=== PATIENT | male | born 1970 | race Caucasian/White ===

== ENCOUNTER 2020-05-12 15:22 | Emergency (ER) | payer OTHER, SELFPAY ==
[2020-05-12 15:45] VITALS: BP 159/81; PULSE 92; RESP 18; TEMP 36.6; O2SAT 100
--- NOTE | 2020-05-12 15:55 | ED.LOWEXIN ---
HPI - Extremity Injury (Lower) General Chief Complaint: Extremity Injury, Lower Stated Complaint: left foot pain Source: patient Mode of arrival: ambulatory Limitations: no limitations History of Present Illness HPI Narrative: Patient is a 49-year-old male who presents complaining of left dorsal foot pain. He reports tenderness with palpation, reports he has had this happen multiple times in his head testing and evaluation for gout which has been negative. Patient reports he has been treated with steroids in the past and antibiotics. He denies taking [id number] medications for symptomatic treatment at this time. Related Data Allergies Allergy/AdvReac Type Severity Reaction Status Date / Time sulfamethoxazole Allergy Unconscious Verified 05/12/20 16:09 [From Bactrim] trimethoprim [From Bactrim] Allergy Unconscious Verified 05/12/20 16:09 Review of Systems Review of Systems: Narrative: CONSTITUTIONAL: Denies fever, chills, or sweats. EYES: Denies visual changes, redness, or discharge. ENT: Denies rhinorrhea, congestion, sore throat, or otalgia. CARDIOVASCULAR: Denies chest pain, palpitations, or edema. RESPIRATORY: Denies cough or dyspnea. GASTROINTESTINAL: Denies abdominal pain, nausea, vomiting, or diarrhea. GENITOURINARY: Denies dysuria or hematuria. SKIN: Denies rash or itching. MUSCULOSKELETAL: Reports left foot pain NEUROLOGIC: Denies headache, numbness, dizziness, or weakness. PSYCHIATRIC: Denies anxiety or depression. PMFSH Past Medical History Medical History (Updated 05/12/20 @ 16:06 by SANTIAGO Mtz) No significant past medical history Surgical History Surgical History (Updated 05/12/20 @ 16:01 by SANTIAGO Mtz) No significant past surgical history Family History Family History (Updated 05/12/20 @ 16:01 by SANTIAGO Mtz) Other Heart disease Hypertension Social History Social History (Updated 05/12/20 @ 16:02 by SANTIAGO Mtz) Smoking status: Current every day smoker Tobacco type: cigarettes Alcohol intake: current Alcohol use details: occasional Substance use: never Living arrangements: with family Exam Narrative: Exam Narrative: GENERAL: Well-appearing, well-nourished, and in no acute distress. HEAD: Normocephalic, atraumatic. EYES: No redness or drainage. ENT: Mucous membranes pink and moist. CHEST: No respiratory distress. MUSCULOSKELETAL: No bony tenderness. EXTREMITIES: Erythema and edema to left lateral dorsal foot. Tenderness with palpation SKIN: Warm, dry, no rash. NEURO: No focal deficits. Alert and oriented x3. Gait steady. PSYCH: Normal affect. No signs of depression or anxiety. MDM - Extremity Injury (Lower) MDM Narrative Medical decision making narrative: Patient appears to have mild cellulitis to left foot. Patient to be treated with antibiotics at this time. Patient also requesting steroids as he has been treated with same in the past. Discussed plan of care and follow-up with patient, who agrees. Patient is stable for discharge to home with outpatient follow-up as discussed. Differential Diagnosis Differential diagnosis: Likely fracture of toe and other (Gout, cellulitis, plantar fasciitis) Critical Care Time Critical Care Time Critical Care Time: No Discharge Plan Discharge Clinical Impression: Cellulitis Patient Disposition: Home, Self-Care Condition: Stable Instructions: Antibiotic Form, Cellulitis (DC) Additional Instructions: Take antibiotics as directed. You may also take steroids as directed. Follow-up with PCP provided. If you develop increased swelling, inability to ambulate or increased pain, please go to the emergency department immediately for further evaluation. Prescriptions: New clindamycin HCl 300 mg capsule 300 mg PO Q6H 7 Days Qty: 28 RF: 0 prednisone 20 mg tablet 40 mg PO DAILY 5 Days Qty: 10 RF: 0 Follow-up/Referrals: PHYSICIAN,DESIGN EDITOR [Barbara
== END 2020-05-12 16:20 | disposition home or self-care (01) ==
PROVIDERS: Emergency Provider Nurse Practitioner
DX: L03.116 Cellulitis of left lower limb (principal); F17.210 Nicotine dependence, cigarettes, uncomplicated
CPT/HCPCS: 99213; G0463

== ENCOUNTER 2020-08-23 11:11 | Emergency (ER) | payer OTHER, SELFPAY ==
[2020-08-23 11:20] VITALS: BP 132/85; PULSE 85; RESP 20; TEMP 36.9; O2SAT 99
--- NOTE | 2020-08-23 11:52 | ED.SKABFB ---
HPI - Skin/Abscess/Foreign Bdy General Chief complaint: Skin/Abscess/Foreign Body Stated complaint: rash on arms Time Seen by Provider: 08/23/20 11:42 Source: patient and RN notes reviewed Mode of arrival: ambulatory Limitations: no limitations History of Present Illness HPI narrative: Patient presents today with a 10-day history of severely pruritic rash to chest, bilateral arms, groin, and right lower leg. Patient states he has been out pulling weeds in his yard and this is what the likely culprit of his rash. He has been using leather gloves, but has not changed out the gloves and has been continuing to pull weeds in his yard since the rash began. He has been using some Ivarest and calamine lotion as well as taking Benadryl without much relief. MD complaint: rash Related Data Allergies Allergy/AdvReac Type Severity Reaction Status Date / Time sulfamethoxazole Allergy Unconscious Verified 08/23/20 11:15 [From Bactrim] trimethoprim [From Bactrim] Allergy Unconscious Verified 08/23/20 11:15 Review of Systems Review of Systems: Narrative: CONSTITUTIONAL: Denies body aches, fever, chills, or sweats. EYES: Denies visual changes, redness, or discharge. ENT: Denies rhinorrhea, congestion, sore throat, or otalgia. CARDIOVASCULAR: Denies chest pain, palpitations, or edema. RESPIRATORY: Denies cough or dyspnea. GASTROINTESTINAL: Denies abdominal pain, nausea, vomiting, or diarrhea. GENITOURINARY: Denies dysuria or hematuria. SKIN: Denies wounds.+ Pruritic rash MUSCULOSKELETAL: Denies back pain, joint pain, or myalgia. NEUROLOGIC: Denies headache, numbness, tingling, or weakness. PSYCH: Denies depression or anxiety. [facility] Past Medical History Medical History No significant past medical history Surgical History Surgical History No significant past surgical history Family History Family History Other Heart disease Hypertension Social History Social History Smoking status: Current every day smoker Tobacco type: cigarettes Alcohol intake: current Substance use: never Comments At time of signature, I have reviewed and agree with nursing past medical, surgical, social and family history unless otherwise noted. Please see nursing chart for further information. There is no relevant family history pertinent to the presenting complaint Exam Narrative: Exam Narrative: GENERAL: Well-appearing, well-nourished, and in no acute distress. HEAD: Normocephalic, atraumatic. EYES: EOMI. No redness or drainage. Conjunctivae normal. ENT: Mucous membranes pink and moist. NECK: Normal AROM. CHEST: No respiratory distress. EXTREMITIES: Normal range of motion. No edema. SKIN: Warm, dry. Capillary refill normal. Normal skin turgor. Erythematous papular and tiny vesicular rash clusters to the left chest, bilateral upper and lower arms, groin, and right lower leg. No induration or fluctuance noted. No active drainage. No crusting. NEURO: No focal deficits. Alert and oriented x3. Gait steady. PSYCH: Normal affect. No signs of depression or anxiety. Course Vital Signs Vital signs: Vital Signs Temperature 98.4 F 08/23/20 11:20 Pulse Rate 85 08/23/20 11:20 Respiratory Rate 08/23/20 11:20 Blood Pressure 132/85 08/23/20 11:20 Pulse Oximetry 99 08/23/20 11:20 Temperature 98.4 F 08/23/20 11:20 Pulse Rate 85 08/23/20 11:20 Respiratory Rate 20 08/23/20 11:20 Blood Pressure 132/85 08/23/20 11:20 Pulse Oximetry 99 08/23/20 11:20 Reviewed. Pt has been instructed to follow up with his PCP regarding his elevated blood pressure today. MDM - Skin/Abscess/Foreign Bdy Differential Diagnosis Differential diagnosis: Likely abscess of skin or sub
== END 2020-08-23 12:00 | disposition home or self-care (01) ==
PROVIDERS: Emergency Provider Nurse Practitioner
DX: L25.9 Unspecified contact dermatitis, unspecified cause (principal); F17.210 Nicotine dependence, cigarettes, uncomplicated
CPT/HCPCS: 99213; G0463

== ENCOUNTER 2022-08-28 12:22 | Emergency (ER) | payer OTHER, SELFPAY ==
--- NOTE | 2022-08-28 12:27 | ED.LOWEXIN ---
HPI - Extremity Injury (Lower) General Chief Complaint: Extremity Injury, Lower Stated Complaint: Right foot issues Time Seen by Provider: 08/28/22 12:27 Source: patient Mode of arrival: ambulatory Limitations: no limitations History of Present Illness HPI Narrative: Patient is a 51-year-old male who presents with right base of big toe pain and redness starting yesterday. Patient states it feels the same as the last time he had cellulitis. Patient states he has been tested for gout multiple times and has come back negative each time. Patient reports pain to bend big toe but is still able to ambulate. Denies any redness streaking up the foot, fever, chills. Related Data Allergies Allergy/AdvReac Type Severity Reaction Status Date / Time sulfamethoxazole Allergy Unconscious Verified 08/23/20 11:15 [From Bactrim] trimethoprim [From Bactrim] Allergy Unconscious Verified 08/23/20 11:15 Review of Systems Review of Systems: All systems reviewed & are unremarkable except as noted in HPI and below Constitutional: Constitutional: Denies body ache(s), Denies chills, Denies fatigue, Denies fever(s), Denies headache(s), Denies malaise and Denies weakness Eyes: Eyes: Denies blurry vision, Denies irritation and Denies loss of vision ENT: Denies otalgia, Denies headache(s), Denies nasal discharge, Denies sinus pain and Denies sore throat Cardiovascular: Cardiovascular: Denies chest pain, Denies irregular heart rhythm and Denies dyspnea Respiratory: Respiratory: Denies dyspnea Gastrointestinal: Gastrointestinal: Denies abdominal pain, Denies melena, Denies hematochezia, Denies diarrhea, Denies nausea and Denies vomiting Musculoskeletal: Musculoskeletal: Denies back pain, Denies myalgias and Reports arthralgias (Right big toe) Integumentary/Breasts: Skin/Breast: Denies pruritus and Denies rash Neurologic: Denies headache(s), Denies loss of vision and Denies weakness Psychiatric: Psychiatric: Reports no additional psychiatric complaints Endocrine: Endocrine: Denies fatigue PMFSH Past Medical History Medical History No significant past medical history Surgical History Surgical History No significant past surgical history Family History Family History Other Heart disease Hypertension Social History Social History Smoking status: Current every day smoker Tobacco type: cigarettes Alcohol intake: current Alcohol use details: occasional Substance use: never Living arrangements: with family Comments At time of signature, agree with nursing past medical, surgical, social and family history. There is no relevant family history pertinent to the presenting complaint. Exam Const: General: cooperative, healthy appearing, comfortable, no acute distress and well nourished Nutritional Appearance: well nourished Orientation/consciousness: patient oriented x3 Limitations: no limitations HENMT: Head: normal to inspection, normocephalic and atraumatic Ears: hearing grossly normal bilaterally and external ears normal Face/Nose/Sinus: Normal external nose present, normal facial exam and face symmetric Face and sinus: normal facial exam and face symmetric Mouth: Yes lip normal Eyes: General: appearance normal, both eyes and all related structures Alignment and Position: alignment normal and position normal Periorbital: periorbital findings normal Eyelids: eyelids normal Pupils: Equal, round and reactive pupils present EOM: EOMs intact bilaterally Neck: Neck: normal visual inspection, full ROM and supple Chest: Chest palpation & inspection: normal inspection of the chest Resp: Effort & Inspection: normal respiratory effort and able to speak in complete sentences Auscu
[2022-08-28 12:30] VITALS: BP 118/89; PULSE 93; RESP 20; TEMP 37.1; O2SAT 98
== END 2022-08-28 12:52 | disposition home or self-care (01) ==
PROVIDERS: Emergency Provider Nurse Practitioner Family
DX: L03.031 Cellulitis of right toe (principal); F17.210 Nicotine dependence, cigarettes, uncomplicated
CPT/HCPCS: 99213; G0463

== ENCOUNTER 2025-03-01 08:10 | Emergency (ER) | payer OTHER, SELFPAY ==
--- OUTSIDE RECORDS SUMMARY | 2023-11-04 02:15 | XMS_ITS ---
Author Organization [facility]ILL[facility] Address [address] [place] [address] Care Team Providers Care Contracts Intern Name Role Phone Mavis Kerns Primary Care Provider [phone] ALLERGIES Allergen (clinical drug ingredient) Drug/Non Drug Allergy documented on EMR Reaction Allergy Type Onset Date Status sulfamethoxazole / trimethoprim Bactrim nausea and vomiting Drug Allergy Active RESULTS Component Value Reference Range Notes Comp. Metabolic Panel (14) ( CMP)([id number]) Reviewed date:11/07/2023 08:02:16 AM Interpretation:Normal Performing Lab:[facility], [address] [place] [address] [id number], Phone - [phone], Director - Gabby Notes/Report: Glucose 88 70-99 mg/dL BUN 14 6-24 mg/dL Creatinine 0.82 0.76-1.27 mg/dL eGFR 104 >59 mL/min/1.73 BUN/Creatinine Ratio 17 9-20 Sodium 141 134-144 mmol/L Potassium 4.8 3.5-5.2 mmol/L Chloride 105 96-106 mmol/L Carbon Dioxide, Total 20 20-29 mmol/L Calcium 9.6 8.7-10.2 mg/dL Protein, Total 7.0 6.0-8.5 g/dL Albumin 4.4 3.8-4.9 g/dL Globulin, Total 2.6 1.5-4.5 g/dL Bilirubin, Total 0.3 0.0-1.2 mg/dL Alkaline Phosphatase 100 44-121 IU/L AST (SGOT) 18 0-40 IU/L ALT (SGPT) 22 0-44 IU/L Hemoglobin A1c (S/O) ([id number] ) Reviewed date:11/07/2023 08:02:16 AM Interpretation:Normal Performing [facility], [address] [place] [address] [id number], Phone - [phone], Director - [facility] Notes/Report: Hemoglobin A1c 5.6 4.8-5.6 % . Prediabetes: 5.7 - 6.4 Diabetes: >6.4 Glycemic control for adults with diabetes: <7.0 CBC, Platelet; No Differenti al ([id number]) Reviewed date:11/07/2023 08:02:16 AM Interpretation:Normal Performing Lab:[facility], [address] [place] [address] [id number], Phone - [phone], Director - [facility] Notes/Report: WBC 9.4 3.4-10.8 x10E3/uL RBC 5.24 4.14-5.80 x10E6/uL Hemoglobin 15.8 13.0-17.7 g/dL Hematocrit 49.2 37.5-51.0 % MCV 94 79-97 fL MCH 30.2 26.6-33.0 pg MCHC 32.1 31.5-35.7 g/dL RDW 13.1 11.6-15.4 % Platelets 265 150-450 x10E3/uL NRBC PSA Prostate-Specific Antige n, Serum([id number]) Reviewed date:11/07/2023 08:02:17 AM Interpretation: Performing Lab:[facility], [address] [place] [address] [id number], Phone - [phone], Director - [facility] Notes/Report: Prostate Specific Ag 2.7 0.0-4.0 ng/mL Patty ECLIA methodology. . According to the [place] [employer], Serum PSA should decrease and remain at undetectable levels after radical prostatectomy. The AUA defines biochemical recurrence as an initial PSA value 0.2 ng/mL or greater followed by a subsequent confirmatory PSA value 0.2 ng/mL or greater. Values obtained with different assay methods or kits cannot be used interchangeably. Results cannot be interpreted as absolute evidence of the presence or absence of malignant disease. Lipid Panel w/ Chol/HDL Rati o ([id number]) Reviewed date:11/07/2023 08:02:16 AM Interpretation:Normal Performing Lab:[facility], [address] [facility], [place], [place] [id number], Phone - [phone], Director - Gabby Notes/Report: Cholesterol, Total 143 100-199 mg/dL Triglycerides 136 0-149 mg/dL HDL Cholesterol 46 >39 mg/dL VLDL Cholesterol Arturo 24 5-40 mg/dL LDL Chol Calc ([facility]) 73 0-99 mg/dL LDL Calc Comment: T. Chol/HDL Ratio 3.1 0.0-5.0 ratio T. Chol/HDL Ratio Men Women 1/2 Avg.Risk 3.4 3.3 Avg.Risk 5.0 4.4 2X Avg.Risk 9.6 7.1 3X Avg.Risk 23.4 11.0 REASON FOR VISIT CPE, f/u HLD, ED, vit D, LDCT, CRC screening, labs, Patient states his arthritis in his hands/fingers is worsening and he needs something to manage the pain and stiffness, Lab draw MEDICATIONS Medication SIG (Take, Route, Frequency, Duration) Notes Start Date End Date Status Atorvastatin Calcium 40 MG 1 tablet Orally Once a day at bedtime for 90 days hyperlipidemia 11/05/2022 Active Omeprazole 20 MG 1 capsule 30 minutes before morning meal Orally Once a day PRN Active B12 5000 MCG as directed Sublingual PRN Active Cialis 10 MG 1/2-1 tablet as needed Orally Once a day as needed for 90 days Take at least 30 minutes prior to anticipated sexual activity; do not take more than once daily. Erectile function may be improved for up to 36 hours following a single dose. 12/13/2022 Active Centrum Silver 50+Men - as directed Orally Active Aleve 220 MG 2-3 capsule with food or milk as needed Orally every 12 hrs PRN joint pain Active Vitamin D (Ergocalciferol) 30975 UNIT 1 capsule Orally every week for 90 days vitamin D deficiency 11/05/2022 Active SOCIAL HISTORY Tobacco Use: Social History Observation Description Date Details (start date - stop date) Current Smoker NA - NA Sex Assigned At : Social History Observation Description Sex Assigned At Unknown Tobacco Use/Smoking Question Answer Notes Are you a current user How often do you smoke cigarettes? every day How many cigarettes a day do you smoke? 11-20 How soon after you wake up do you smoke your fir st cigarette? within 5 minutes Are you interested in quitting? Not ready to amy t Alcohol Questionnaire Question Answer Notes Did you have a drink contain ing alcohol in the past year? Yes How often did you have a dri nk containing alcohol in the past year? 4 or more times a week (4 points) How many drinks did you have on a typical day when you were drinking in the past year? 10 or more drinks (4 points) How often did you have 6 or more drinks on one occasion in the past year? Daily or almost daily (4 points) Points 12 Interpretation Positive Sexual History Question Answer Notes Had sex in the past 12 months (vaginal, oral, or anal)? Yes with Women only Use protection? No Have you ever had a Sexually transmitted disease ? No Tobacco use other than smoking Question Answer Notes Are you an other tobacco user? No Section Notes: started smoking at 9 y/o ap prox 1981 VITAL SIGNS Temperature 97.7 degrees Fahrenheit 11/04/19 24 Heart Rate 81 /min 11/04/2023 Oximetry 97 % 11/04/2023 Blood pressure systolic 117 mm Hg 11/04/19 24 Blood pressure diastolic 66 mm Hg 024 Respiratory Rate 14 /min 11/04/2023 Weight 184.2 lbs 11/04/2023 Height 69.75 in 11/04/2023 BMI 26.62 11/04/2023 Weight-kg 83.55 kg 11/04/2023 Encounters Encounter Location Date Provider Diagnosis [address] [address] 11/04/2023 Mavis Kerns Hyperlipidemia, unspecified hyperlipidemia type E78.5 ; Encounter for general adult medical examination with abnormal findings Z00.01 ; Smoking greater than 20 pack years F17.210 ; Erectile dysfunction, unspecified erectile dysfunction type N52.9 ; Vitamin D deficiency E55.9 ; Colon cancer screening Z12.11 and Prostate cancer screening Z12.5 ASSESSMENTS Encounter Date Diagnosis Assessment Notes Treatment Notes Treatment Clinical Notes Section Notes 11/04/2023 Hyperlipidemia, unspecified hyperlipidemia type (ICD-10 - E78.5) Pt doing well, no concerns. Requests RF sent to [facility]. Discussed as ordered. Will call to review w/pt his pending lab results. 11/04/2023 Encounter for general adult medical examination with abnormal findings (ICD-10 - Z00.01) Requests RFs: Requests RFs through [facility]. Doing well on all meds, no concerns. JUAN/PHQ negative. Pt denies SI/HI/panic. CRC Screening: Never, very reluctant for all preventative care. Did not complete Cologuard kit. States he would like this reordered. Does not want colonoscopy. Last labs/PSA: 05/2023. Fasting today, agreeable to repeat. Vax: Last tdap 2018 with injury. Declines Shingrix, pneumonia, COVID, and annual flu vaccines. Smoking: LDCT discussed, pt reluctant but agreeable. Ordered. He refuses tobacco cessation effort information. He is aware we have nicotine patches and oral medications as well as other resources if he becomes willing. 11/04/2023 Smoking greater than 20 pack years (ICD-10 - F17.210) LDCT discussed, pt reluctant but agreeable. Ordered. He refuses tobacco cessation effort information. He is aware we have nicotine patches and oral medications as well as other resources if he becomes willing. 11/04/2023 Erectile dysfunction, unspecified erectile dysfunction type (ICD-10 - N52.9) Pt doing well, no concerns. Requests RF sent to [facility]. Discussed as ordered. F/U [id number] or sooner PRN. 11/04/2023 Vitamin D deficiency (ICD-10 - E55.9) Pt doing well, no concerns. Requests RF sent to [facility]. Discussed as ordered. 11/04/2023 Colon cancer screening (ICD-10 - Z12.11) Never any screening as he is very reluctant for all preventative care. Did not complete Cologuard kit ordered at last CPE. States he would like this reordered. Does not want colonoscopy. Encouraged him to complete testing. Pt agrees, states he will complete it GENEVA. 11/04/2023 Prostate cancer screening (ICD-10 - Z12.5) PLAN OF TREATMENT Medication Medication Name Sig Start Date Stop Date Notes Atorvastatin Calcium 40 MG 1 tablet Orally Once a day at bedtime for 90 days 11/05/2022 hyperlipidemia Cialis 10 MG 1/2-1 tablet as needed Orally Once a day as needed for 90 days 12/13/2022 Take at least 30 min utes prior to anticipated sexual activity; do not take more than once daily. Erectile function may be improved for up to 36 hours following a single dose. Vitamin D (Ergocalciferol) 40554 UNIT 1 capsule Orally every week for 90 days 11/05/2022 vitamin D deficiency Next Appt Details Follow Up: 1 Year, Reason: C PE Procedure Notes * Category Sub-Category Detail Notes Venipuncture Venipuncture: Procedure Explai nedStandard Precautions Used,verbal consent obtained,Pt Position,sitting,21 g butterfly,RT AC Space,# of Attempts,1Successful,Pt Tolerated Well,No Redness/Swelling at Site,Pressure and Clean Bandage Applied, 1 SST 1 lav collected. AMY Juarez Progress Notes * Nelson FLORIAN JROB:1970 (52 yo M)Acc No.[id number]:11/04/2023 Patient: Cam FLORIAN JR Provider: Mavis Kerns APRN :1970 Age:52 Y Sex:Male Date:11/04/2023 Address:[address] [place], [place] [id number] Subjective: * Chief Complaints: * CPE, f/u HLD, ED, vit D, LDCT, CRC screening, labsPatient states his arthritis in his hands/fingers is worsening and he needs something to manage the pain and stiffnessLab draw * HPI: Depression/Anxiety Screening: PHQ-9 (If PHQ-2 positive) Little interest or pleasure in doing things Not at all Feeling down, depressed, or hopeless Not at all Trouble falling or staying asleep, or sleeping too much More than half the days Feeling tired or having little energy Not at all Poor appetite or overeating Not at all Feeling bad about yourself or that you are a failure, or have let yourself or your family down Not at all Trouble concentrating on things, such as reading the newspaper or watching television Not at all Moving or speaking so slowly that other people could have noticed; or the opposite, being so fidgety or restless that you have been moving around a lot more than usual Not at all Thoughts that you would be better off or of hurting yourself in some way Not at all Total Score 2 Interpretation Minimal Depression Depression Screening: JUAN-7 (2018 Edition) Feeling nervous, anxious, or on edge Not at all Not being able to stop or control worrying Not at all Worrying too much about different things Not at all Trouble relaxing Several days Being so restless that it is hard to sit still Not at all Becoming easily annoyed or irritable Not at all Feeling afraid as if something awful might happen Not at all Total JUAN-7 Score 1 Interpretation of Total (0 to 4) No Anxiety *: Pt presents for CPE, f/u HLD, ED, vit D, LDCT, CRC screening, labs. D oing well w/meds, no concerns. M ed RFs: yes, on all meds. C RC Screening: never, did not complete Cologuard as ordered last year. L wilfredo cancer screening: never. L ast Labs/PSA: May 2023. V accines: reports last tdap 2017 after nail injury to L hand. Declines Shingrix. * ROS: General/Constitutional: General Denies:, chills, fatigue, fever. Eyes Denies:, blurred vision. ENT DENIES: , hearing decreased, ear(s) pain, nose congestion/drainage. Cardiovascular DENIES: , irregular heartbeat, palpitations, chest pain or tightness. Respiratory DENIES: , cough, wheezing, shortness of breath. Gastrointestinal DENIES: , abdominal pain, constipation, diarrhea, nausea, vomiting. Genitourinary DENIES: , dysuria, polyuria. Men Only REPORTS: , erectile dysfunction , DENIES: , hernia , lump in groin , penile discharge , scrotal pain , scrotal swelling , testicle painful , urinary hesitancy. Skin DENIES: , itching, rash, concerning/changing lesions. Musculoskeletal REPORTS: PAIN IN JONITS OF FINGERS/HANDS. DENIES: b ack pain. Peripheral Vascular DENIES: , claudication, varicose veins. Neurologic DENIES: , dizziness, headache, weakness, coordination problem, gait abnormality. Psychiatric DENIES:, anxiety, depressed mood, sleep problems, substance abuse, suicidal thoughts. Endocrine DENIES: , cold intolerance, heat intolerance, polydipsia. Hematology DENIES: , bleeding prolonged, bruising easily, glands swollen. * Medical History: * Surgical History: Sebaceous cyst removal R knee 2013 * Hospitalization/Major Diagno stic Procedure: Denies Past Hospitalization * Family History: Father: alive, unknown, doesn't go to doctor. Mother: alive, rheumatoid arthritis, kidney failure, diabetes, diagnosed with Diabetes. Sister 1: alive, obesity, diagnosed with Hypertension, Other malignant neoplasm of unspecified site. 1 sister(s) . 1 son(s) . . * Social History: Tobacco Use: Tobacco Use/Smoking Are you a current user How often do you smoke cigarettes? every day How many cigarettes a day do you smoke? 11-20 How soon after you wake up do you smoke your first cigarette? within 5 minutes Are you interested in quitting? Not ready to quit User of Type: Cigarettes Tobacco use other than smoking Are you an other tobacco user? No Habits (drugs/alcohol/caffeine): Caffeine Caffeinated beverages Yes -Coffee (cups per day) 0 -Soda/energy drinks (per day) 1 Alcohol Use alcohol currently Yes Drinks per week drinks a 12 pack plus shots (Natural Light and Jagger, margaritas, etc...) Alcohol Questionnaire Did you have a drink containing alcohol in the past year? Yes How often did you have a drink containing alcohol in the past year? 4 or more times a week (4 points) How many drinks did you have on a typical day when you were drinking in the past year? 10 or more drinks (4 points) How often did you have 6 or more drinks on one occasion in the past year? Daily or almost daily (4 points) Points 12 Interpretation Positive Drugs Have you used drugs other than for medical reasons? Yes Drug(s) used marijuana Route inhalation Are you still using? Yes Do you want treatment? No Have ever injected drugs? No Are there minors (18 years or younger) at risk at home? No Sexual History: Sexual History Had sex in the past 12 months (vaginal, oral, or anal)? Yes with Women only Use protection? No Have you ever had a Sexually transmitted disease? No started smoking at 9 y/o approx 1980. * Medications: TakingOmeprazole 20 MG Capsule Delayed Release 1 capsule 30 minutes before morning meal Orally Once a day B12 5000 MCG Tablet Sublingual as directed Sublingual Centrum Silver 50+Men - Tablet as directed Orally Aleve 220 MG Capsule 2-3 capsule with food or milk as needed Orally every 12 hrs Atorvastatin Calcium 40 MG Tablet 1 tablet Orally Once a day at bedtime for cholesterolVitamin D (Ergocalciferol) 34463 UNIT Capsule 1 capsule Orally every week Cialis 10 MG Tablet 1/2-1 tablet as needed Orally Once a day as needed for EDMedication List reviewed and reconciled with the patientTaking Omeprazole 20 MG Capsule Delayed Release 1 capsule 30 minutes before morning meal Orally Once a day Taking B12 5000 MCG Tablet Sublingual as directed Sublingual Taking Centrum Silver 50+Men - Tablet as directed Orally Taking Aleve 220 MG Capsule 2-3 capsule with food or milk as needed Orally every 12 hrs Taking Atorvastatin Calcium 40 MG Tablet 1 tablet Orally Once a day at bedtime for cholesterolTaking Vitamin D (Ergocalciferol) 55933 UNIT Capsule 1 capsule Orally every week Taking Cialis 10 MG Tablet 1/2-1 tablet as needed Orally Once a day as needed for EDMedication List reviewed and reconciled with the patient * Allergies: Bactrim: nausea and vomiting - Criticality Unknownno[Allergies Verified] Objective: * Vitals: Temp:97.7F, HR:81, Oxygen sat:97%, BP:117/66mm Hg, RR:14/min, Wt:184.2lbs, Wt Ch.8 lbs, Wt Chg %: 4.42%, Ht:69.75in, BMI:26.62, Wt-k.55 kg. * Examination: General Examination *: GENERAL APPEARANCE: alert and oriented, no acute distress, pleasant , appears older than stated age. HEAD: atraumatic, normocephalic. EYES: extraocular movements intact, conjunctiva clear, sclera non-icteric. EARS: auditory canal clear, light reflex present, tympanic membrane intact. SINUSES: non-tender. NOSE: nares patent, no lesions . ORAL CAVITY: no lesions, mucosa moist, normal dentition. THROAT: no erythema, no exudate, pharynx normal, tonsils normal, uvula midline . NECK/THYROID: neck supple, no thyromegaly. LYMPH NODES: no anterior cervical adenopathy. HEART: S1/S2 normal, regular rate and rhythm, no murmurs, no rubs, no gallops. LUNGS: no cough, dyspnea, or wheeze, good air movement, course lung sounds throughout. CHEST: anteroposterior (AP) diameter normal, no deformity. ABDOMEN: soft, non-tender, normal bowel sounds, non-distended. BACK: non-tender, full range of motion. SKIN: Warm and dry, good turgor, no rashes, no suspicious lesions. EXTREMITIES: no edema, capillary refill normal. PERIPHERAL PULSES: 2+ throughout. NEUROLOGIC: alert, cooperative, moving all extremities spontaneously, non-focal. MUSCULOSKELETAL: no swelling or deformity. PODIATRIC: no cyanosis/clubbing/edema. PSYCH: affect normal, cognitive function intact, mood normal, *SPEECH/LANGUAGE, clear. Assessment: * Assessment: 1. Encounter for general adult medical examination with abnormal findings - Z00.01 (Primary) 2. Hyperlipidemia, unspecified hyperlipidemia type - E78.5 3. Smoking greater than 20 pack years - F17.210 4. Erectile dysfunction, unspecified erectile dysfunction type - N52.9 5. Vitamin D deficiency - E55.9 6. Colon cancer screening - Z12.11 7. Prostate cancer screening - Z12.5 Plan: * Treatment: Value Reference Range Hematocrit 49.2 37.5-51.0 - % * Hemoglobin 15.8 13.0-17.7 - g/dL * MCH 30.2 26.6-33.0 - pg * MCHC 32.1 31.5-35.7 - g/dL * MCV 94 79-97 - fL * Platelets 265 150-450 - x10E3/uL * RBC 5.24 4.14-5.80 - x10E6/uL * RDW 13.1 11.6-15.4 - % * WBC 9.4 3.4-10.8 - x10E3/uL * This lab was reviewed by Sherry Kerns on 11/07/2023 at 08:02 AM MDT Clinical Notes: Requests RFs: Requests RFs through [facility]. Doing well on all meds, no concerns. JUAN/PHQ negative. Pt denies SI/HI/panic. CRC Screening: Never, very reluctant for all preventative care. Did not complete Cologuard kit. States he would like this reordered. Does not want colonoscopy. Last labs/PSA: 05/2023. Fasting today, agreeable to repeat. Vax: Last tdap 2018 with injury. Declines Shingrix, pneumonia, COVID, and annual flu vaccines. Smoking: LDCT discussed, pt reluctant but agreeable. Ordered. He refuses tobacco cessation effort information. He is aware we have nicotine patches and oral medications as well as other resources if he becomes willing.? 2.??Hyperlipidemia, unspecified hyperlipidemia type?? Refill Atorvastatin Calcium Tablet, 40 MG, 1 tablet, Orally, Once a day at bedtime for cholesterol,90 days, Refills 3.?LAB: Comp. Metabolic Panel (14) ([facility])(309147)* Value Reference Range Glucose, Serum 88 70-99 - mg/dL * BUN 14 6-24 - mg/dL * Creatinine, Serum 0.82 0.76-1.27 - mg/dL * BUN/Creatinine Ratio 17 9-20 - * Sodium, Serum 141 134-144 - mmol/L * Potassium, Serum 4.8 3.5-5.2 - mmol/L * Chloride, Serum 105 96-106 - mmol/L * Carbon Dioxide, Total 20 20-29 - mmol/L * Calcium, Serum 9.6 8.7-10.2 - mg/dL * Protein, Total, Serum 7.0 6.0-8.5 - g/dL * Albumin, Serum 4.4 3.8-4.9 - g/dL * Globulin, Total 2.6 1.5-4.5 - g/dL * Bilirubin, Total 0.3 0.0-1.2 - mg/dL * Alkaline Phosphatase, S 100 44-121 - IU/L * AST (SGOT) 18 0-40 - IU/L * ALT (SGPT) 22 0-44 - IU/L * eGFR 104 >59 - mL/min/1.73 * This lab was reviewed by Sherry Kerns on 11/07/2023 at 08:02 AM MDT ?LAB: Hemoglobin A1c (S/O) ([id number])* Value Reference Range Hemoglobin A1c 5.6 4.8-5.6 - % * This lab was reviewed by Sherry Kerns on 11/07/2023 at 08:02 AM MDT ?LAB: Lipid Panel w/ Chol/HDL Ratio (438371)* Value Reference Range Cholesterol, Total 143 100-199 - mg/dL * Triglycerides 136 0-149 - mg/dL * HDL Cholesterol 46 >39 - mg/dL * T. Chol/HDL Ratio 3.1 0.0-5.0 - ratio * VLDL Cholesterol Arturo 24 5-40 - mg/dL * LDL Chol Calc ([facility]) 73 0-99 - mg/dL * This lab was reviewed by Sherry Kerns on 11/07/2023 at 08:02 AM MDT Clinical Notes: Pt doing well, no concerns. Requests RF sent to [facility]. Discussed as ordered. Will call to review w/pt his pending lab results.?3.??Smoking greater than 20 pack years?Imaging: CT LUNG SCREEN (low dose) Clinical Notes: LDCT discussed, pt reluctant but agreeable. Ordered. He refuses tobacco cessation effort information. He is aware we have nicotine patches and oral medications as well as other resources if he becomes willing. ?4.??Erectile dysfunction, unspecified erectile dysfunction type?? Refill Cialis Tablet, 10 MG, 1/2-1 tablet as needed, Orally, Once a day as needed for ED, 90 days, 90 Tablet, Refills 0.? Clinical Notes: Pt doing well, no concerns. Requests RF sent to [facility]. Discussed as ordered. F/U [id number] or sooner PRN.?5.??Vitamin D deficiency?? Refill Vitamin D (Ergocalciferol) Capsule, 24342 UNIT, 1 capsule, Orally, every week, 90 days, 12 Capsule, Refills 0.? Clinical Notes: Pt doing well, no concerns. Requests RF sent to [facility]. Discussed as ordered. ?6.??Colon cancer screening?? Clinical Notes: Never any screening as he is very reluctant for all preventative care. Did not complete Cologuard kit ordered at last CPE. States he would like this reordered. Does not want colonoscopy. Encouraged him to complete testing. Pt agrees, states he will complete it GENEVA.?7.??Prostate cancer screening?LAB: PSA Prostate-Specific Antigen, Serum(626282)* Value Reference Range Prostate Specific Ag (PSA), Serum 2.7 0.0-4. 0 - ng/mL * This lab was reviewed by Sherry Kerns on 11/07/2023 at 08:02 AM MDT * Procedures: Venipuncture: Venipuncture: Procedure ExplainedStandard Precautions Used,verbal consent obtained,Pt Position,sitting,21 g butterfly,RT AC Space,# of Attempts,1Successful,Pt Tolerated Well,No Redness/Swelling at Site,Pressure and Clean Bandage Applied, 1 SST 1 lav collected. AMY Juarez. * Procedure Codes: 1034F Nicotine Screening - Current [id number] Nicotine [id number] VENIPUNCT, ROUTINE*3008F BMI [id number] Depression [id number] Anxiety Screening * Follow Up: 1 Year (Reason: CPE) * Billing Information: * Visit Code: 39980 Prev visit es tage 40 - 64 comprehensive exam. Modifiers: 25 25079 Level 3 Est Patient Chronic Care. * Procedure Codes: 1034F Nicotine Screening - User (Current). 4000F Nicotine Counseling. 64601 VENIPUNCT, ROUTINE*. 3008F BMI Screening. 3351F Depression Screening - NEGATIVE Screening (PHQ9 <10). 67073 Anxiety Screening. * T Sign off status: Completed true * Provider: Mavis Kerns APRN Date: 11/04/2023 History and Physical Notes * HPI (History of Present Illness) Category Sub-Category Detail Notes Category Not es Depression/Anxiety Screening PHQ-9 (If PHQ-2 positive) Little interest or pleasure in doing things: Not at all Feeling down, depressed, or hopeless: No t at all Trouble falling or staying a sleep, or sleeping too much: More than half the days Feeling tired or having little energy: N ot at all Poor appetite or overeating: Not at all Feeling bad about yourself o r that you are a failure, or have let yourself or your family down: Not at all Trouble concentrating on thi ngs, such as reading the newspaper or watching television: Not at all Moving or speaking so slowly that other people could have noticed; or the opposite, being so fidgety or restless that you have been moving around a lot more than usual: Not at all Thoughts that you would be b pete off or of hurting yourself in some way: Not at all Total Score: 2 Interpretation: Minimal Depression Depression Screening JUAN-7 (2018 Edition) Feelin g nervous, anxious, or on edge: Not at all Not being able to stop or control worryi ng: Not at all Worrying too much about different things : Not at all Trouble relaxing: Several days Being so restless that it is hard to sit still: Not at all Becoming easily annoyed or irritable: No t at all Feeling afraid as if something awful erin ht happen: Not at all Total JUAN-7 Score: 1 Interpretation of Total: (0 to 4) No Anx iety Examination Category Sub-Category Detail Notes Category Not es General Examination * GENERAL APPEARANCE: alert and oriented, no acute distress, pleasant , appears older than stated age HEAD: atraumatic, normocep halic EYES: extraocular movement s intact, conjunctiva clear, sclera non-icteric EARS: auditory canal clear , light reflex present, tympanic membrane intact NOSE: nares patent, no les ions ORAL CAVITY: no lesions, mucosa m oist, normal dentition THROAT: no erythema, no exud ate, pharynx normal, tonsils normal, uvula midline NECK/THYROID: neck supple, no thyr omegaly LYMPH NODES: no anterior cervical adenopathy SKIN: Warm and dry, good t urgor, no rashes, no suspicious lesions HEART: S1/S2 normal, regula r rate and rhythm, no murmurs, no rubs, no gallops LUNGS: no cough, dyspnea, o r wheeze, good air movement, course lung sounds throughout CHEST: anteroposterior (AP) diameter normal, no deformity ABDOMEN: soft, non-tender, no rmal bowel sounds, non-distended BACK: non-tender, full ran ge of motion MUSCULOSKELETAL: no swelling or defor mity EXTREMITIES: no edema, capillary refill normal PERIPHERAL PULSES: 2+ throughout NEUROLOGIC: alert, cooperative, moving all extremities spontaneously, non-focal PODIATRIC: no cyanosis/clubbing /edema PSYCH: affect normal, cogni tive function intact, mood normal, *SPEECH/LANGUAGE, clear SINUSES: non-tender
--- OUTSIDE RECORDS SUMMARY | 2024-01-28 09:36 | XMS_ITS ---
Author Organization BILLING FACILITY [facility] Address [address] [place] [address] Care Team Providers Care Senior Telecommunications Technician Name Role Phone Mavis Kerns Primary Care Provider Encounters Encounter Location Date Provider Diagnosis [address] [address] 01/28/2024 Mavis Kerns PLAN OF TREATMENT No Information Progress Notes * Nelson FLORIAN JROB:1970 (53 yo M)Acc No.[id number]:01/28/2024 Patient: Cam FLORIAN JR :1970 Age:53 Y Sex:Male Address:[address] [place] [id number] * true * Date:
[2025-03-01 08:14] VITALS: BP 131/77; PULSE 84; RESP 20; TEMP 36.7; O2SAT 100
--- OUTSIDE RECORDS SUMMARY | 2025-03-01 08:20 | XMS_ITS | Patient Health Record ---
Author Organization BILLING FACILITY [facility] Address [address] [place] [address] Care Team Providers Care Platinumsmith Name Role Phone Mavis Kerns Primary Care Provider ALLERGIES Allergen (clinical drug ingredient) Drug/Non Drug Allergy documented on EMR Reaction Allergy Type Onset Date Status sulfamethoxazole / trimethoprim Bactrim nausea and vomiting Drug Allergy Active REASON FOR REFERRAL No Information MEDICATIONS Medication SIG (Take, Route, Frequency, Duration) Notes Start Date End Date Status Centrum Silver 50+Men - as directed Orally Active Atorvastatin Calcium 40 MG 1 tablet Orally Once a day at bedtime for 90 days hyperlipidemia 11/05/2022 Active Aleve 220 MG 2-3 capsule with food or milk as needed Orally every 12 hrs PRN joint pain Active Vitamin D (Ergocalciferol) 22879 UNIT 1 capsule Orally every week for 90 days vitamin D deficiency 11/05/2022 Active Cialis 10 MG 1/2-1 tablet as needed Orally Once a day as needed for 90 days Take at least 30 minutes prior to anticipated sexual activity; do not take more than once daily. Erectile function may be improved for up to 36 hours following a single dose. 12/13/2022 Active Omeprazole 20 MG 1 capsule 30 minutes before morning meal Orally Once a day PRN Active B12 5000 MCG as directed Sublingual PRN Active SOCIAL HISTORY Tobacco Use: Social History [...] started smoking at 9 y/o ap prox 1980 started smoking at 9 y/o ap prox 1980 PROBLEMS Problem Type ICD Code Onset Dates Problem Status W/U Status Risk SNOMED Code Notes Problem Vitamin D deficiency (E55.9) Active confirmed 40734915 Problem Erectile dysfunction (N52.9) Active confirmed Erectile dysfunction (355284237) Problem Alcohol abuse (F10.10) Active confirmed 38946145 Problem Current smoker (F17.200) Active confirmed Current smoker (94310643) Problem Erectile dysfunction, unspecified erectile dysfunction type (N52.9) Active confirmed 940314875 Problem Restless leg (G25.81) Active confirmed 71240575 Problem Hyperlipidemia, unspecified hyperlipidemia type (E78.5) Active confirmed 86825869 Problem ETOH abuse (F10.10) Active confirmed Ethanol abuse (66836451) Problem HLD (hyperlipidemia) (E78.5) Active confirmed Hyperlipidaemia (22846786) Problem Smoking greater than 20 pack years (F17.210) Active confirmed 92885804 Encounters Encounter Location Date Provider Diagnosis [facility] [address] [place] [address] 05/04/2024 Mavis Kerns [facility] [address] [place] [address] 11/03/2024 Mavis Kerns PLAN OF TREATMENT No Information Insurance Providers Payer Name Payer Address Payer Phone Subscriber Number Group Number Insured Name Patient Relationship to Insured Coverage Start Date Coverage End Date [employer] [address] [place] [address] [id number] Case Cam Harrell Self - patient is the insured MEDICAL (GENERAL) HISTORY Medical History History ICD Code Cellulitis L03.90 Sebaceous cyst L72.3 Bulging lumbar disc M51.26 Current smoker F17.200 HLD (hyperlipidemia) E78.5 Erectile dysfunction N52.9 ETOH abuse F10.10 Pneumonia J18.9 Surgical History Surgery Date(Month/Year) Sebaceous cyst removal R knee 2014
--- NOTE | 2025-03-01 08:29 | ED.URI ---
HPI - URI/Sore Throat General Chief Complaint: Upper Respiratory Infection Stated Complaint: Cough/Chills Time Seen by Provider: 03/01/25 08:29 Source: RN notes reviewed and old records reviewed Mode of arrival: ambulatory Limitations: no limitations History of Present Illness HPI Narrative: 54 year old male present to express care with complaints of having cold symptoms with cough and sore throat since yesterday. Patient reports that he has has had chills and sweat and has not taken his temperature. Patient reports taking NyQuil for his symptoms without resolution. Patient is daily tobacco user. MD elicited complaint: cough and sore throat Pertinent past history: other (tobacco use) Onset (ago): day(s) (since yesterday) Consistency: constant Severity: mild Description of mucous: clear Able to tolerate fluids by mouth: Yes Treatments prior to arrival: other (NyQuil) Related Data Allergies Allergy/AdvReac Type Severity Reaction Status Date / Time sulfamethoxazole (From Allergy Unconscious Verified 08/23/20 11:15 Bactrim) trimethoprim (From Bactrim) Allergy Unconscious Verified 08/23/20 11:15 Review of Systems Review of Systems: CONSTITUTIONAL: Reports malaise, chills, sweats, unknown if fever. EYES: Denies visual changes, redness, or discharge. ENT: Reports rhinorrhea, congestion, no sinus pain, no otalgia and +sore throat. CARDIOVASCULAR: Denies chest pain, palpitations, or edema. RESPIRATORY: Reports cough.? Denies dyspnea. GASTROINTESTINAL: Denies abdominal pain, nausea, vomiting, diarrhea SKIN: Denies rash or itching. MUSCULOSKELETAL: Denies myalgia. NEUROLOGIC: Denies headache. All systems reviewed & are unremarkable except as noted in HPI and below PMFSH Past Medical History Medical History No significant past medical history Surgical History Surgical History No significant past surgical history Family History Family History Other Heart disease Hypertension Social History Social History (Updated 03/01/25 @ 08:52 by Sharmin Wilson APRN) Smoking packs per day: 0.75 Smoking cigarettes per day: 15.0 Smoking status: Current every day smoker Tobacco type: cigarettes Alcohol intake: current Alcohol use details: occasional Substance use: never Living arrangements: with family Gender identity (if verbalized by the patient): Male Comments At time of signature, agree with nursing past medical, surgical, social and family history. There is no relevant family history pertinent to the presenting complaint Exam Narrative: GENERAL: Well-appearing, well-nourished, and in no acute distress. HEAD: Normocephalic EYES: PERRLA, conjunctivae clear ENT: Nares clear, turbinates edematous and erythematous, clear discharge. Mucous membranes moist. TM pearly reed with dull light reflex bilaterally; no tragal tenderness. Oropharynx erythematous without lesions. Tonsils not enlarged some redness and swelling of uvula, throat without exudate, no drooling, no hoarseness, no trismus, uvula midline.post nasal drainage noted NECK: Supple. No lymphadenopathy CHEST: Clear to auscultation, breath sounds equal. No wheezing, rhonchi, rales, or stridor. No respiratory distress, speaks in full sentences. cough, SAO2 100% on room air HEART: Regular rate and rhythm. No murmur heard. SKIN: Warm, dry, no rash. NEURO: Alert and oriented x3. PSYCH: Normal mood and affect Course Course Emergency Course: Patient is aware of diagnosis, understands and agrees to treatment plan.? Anticipatory guidance given.? Patient agrees to follow-up as directed and is aware of reasons to seek care at the emergency department. Portions of this record may have been created with voice recognition software Level of Care: Express Care Visit Vital Signs Vital signs: Vital Signs Temperature 36.7 C 03/01/25 08:14 Pulse Rate 84 03/01/25 08:14 Respiratory Rate 20 03/01/25 08:14 Blood Pressure 131/77 03/01/25 08:14 Pulse Oximetry 100 03/01/25 08:14 Oxygen Delivery Room Air 03/01/25 08:14 Temperature 36.7 C 03/01/25 08:14 Pulse Rate 84 03/01/25 08:14 Respiratory Rate 20 03/01/25 08:14 Blood Pressure 131/77 03/01/25 08:14 Pulse Oximetry 100 03/01/25 08:14 Oxygen Delivery Room Air 03/01/25 08:14 Reviewed MDM - URI/Sore Throat MDM Narrative Medical decision making narrative: Differential diagnosis considered: [place] virus, strep pharyngitis, allergic rhinitis, upper respiratory tract infection, sinusitis, rhinosinusitis, nasopharyngitis. viral pharyngitis, otitis media, otitis externa, pneumonia, bronchitis, viral cough syndrome, viral syndrome, and influenza.? Exam findings show no acute concerns or changes; patient is non-toxic appearing and is in no distress.? Patient is appropriate for outpatient treatment and follow-up. Differential Diagnosis Differential diagnosis: Likely upper respiratory infection, viral infection, pharyngitis and other (strep pharyngitis) Medical Records Attestation: I reviewed the patient's medical records. Lab Data Attestation: I reviewed the patient's lab results. Lab results narrative: strep screen negative, culture sent Critical Care Time Critical Care Time Critical Care Time: No Discharge Plan Discharge Clinical Impression: Upper respiratory infection Qualifiers: URI type: unspecified URI Qualified Code(s): J06.9 - Acute upper respiratory infection, unspecified Pharyngitis Qualifiers: Pharyngitis/tonsillitis etiology: unspecified etiology Qualified Code(s): J02.9 - Acute pharyngitis, unspecified Patient Disposition: Home Condition: Stable Instructions: Pharyngitis (ED), Upper Respiratory Infection (ED) Additional Instructions: Increase fluids especially juices and water Ekaj-zew-zzxxuyk cough and cold medicine of your choice for your symptoms Zyrtec Claritin or Rajwinder daily include Coricidin brand decongestant Steroids as directed--take with food Medrol Dosepak heat to the face 20-30 minutes 4-6 times a day for pain Salt water gargles, throat lozenges or throat sprays as desired Flonase nasal spray use as prescribed If your symptoms persist, change or worsen significantly before you can contact your personal physician then please, without delay, go to the emergency department for further evaluation. Follow-up with PCP in 7-10 days or sooner if needed Follow up with PCP soon in regards to your blood pressure which is elevated above threshold for referral. Blood pressure above 120/80 may indicate pre-hypertension. 131/77 Your strep test today was negative. A throat culture will be sent to the laboratory for further testing. IF the test is positive, you will receive a phone call within 48 hours and an appropriate antibiotic will be initiated at that time. Patient Language: Uzbek Prescriptions: New methylprednisolone 4 mg tablets,dose pack See Rx Instructions .ROUTE .COMPLEX Qty: 21 0RF Rx Instructions: orally per package directions take with food, take all doses fluticasone propionate [Flonase Allergy Relief] 50 mcg/actuation spray,suspension 1 spray intranasal DAILY Qty: 16 0RF Rx Instructions: administer into each nostril daily Follow-up/Referrals: UNKNOWN,DOCTOR [Primary Care Provider] Stand Alone Forms: Work/School Release IP Time of Disposition: 08:49 [facility] [place] Coma Scale Eyes: Open Verbal: Oriented and Alert Motor: Follows Comm[facility] [place] Coma Total Score: 15
[2025-03-01 08:47] LABS: EDSTREPNEGPOS1 Negative (Negative)
== END 2025-03-01 08:54 | disposition home or self-care (01) ==
PROVIDERS: Emergency Provider Registered Nurse
DX: J06.9 Acute upper respiratory infection, unspecified (principal); J02.9 Acute pharyngitis, unspecified; F17.210 Nicotine dependence, cigarettes, uncomplicated
CPT/HCPCS: 87081; 87880; 99213; G0463